=== PATIENT | male | born 1995 | race Caucasian/White ===

== ENCOUNTER 2017-08-06 13:39 | Emergency (ER) | payer MEDICAID ==
[~2017-08-06] VITALS: Ht 180.3 cm; Wt 83.5 kg
[2017-08-06 13:43] VITALS: BP 136/86; Ht 180.3 cm; Wt 83.5 kg
== END 2017-08-06 15:15 | disposition home or self-care (01) ==
LOC: ED 13:39
DX: H10.13 Acute atopic conjunctivitis, bilateral (principal); J30.2 Other seasonal allergic rhinitis; Z88.5 Allergy status to narcotic agent; Z88.2 Allergy status to sulfonamides